=== PATIENT | female | born 1965 | race Caucasian/White ===

== ENCOUNTER 2023-10-06 13:40 | Outpatient (RCR) | payer OTHER, SELFPAY | END 2023-10-06 23:59 | disposition home or self-care (01) | LOC: RST 13:40 | PROVIDERS: ATTENDING PHYSICIAN Internal Medicine Gastroenterology; FAMILY PHYSICIAN Family Medicine | DX: I67.1 Cerebral aneurysm, nonruptured (principal); I69.328 Other speech and language deficits following cerebral infarction; I69.314 Frontal lobe and executive function deficit following cerebral infarction; H53.9 Unspecified visual disturbance | CPT/HCPCS: 92507 ==

== ENCOUNTER 2023-11-03 12:05 | Outpatient (RCR) | payer OTHER, SELFPAY | END 2023-11-03 23:59 | disposition home or self-care (01) | LOC: RST 12:05 | PROVIDERS: ATTENDING PHYSICIAN Family Medicine; FAMILY PHYSICIAN Internal Medicine Gastroenterology | DX: I67.1 Cerebral aneurysm, nonruptured (principal); H53.9 Unspecified visual disturbance; S09.90XD Unspecified injury of head, subsequent encounter; I69.328 Other speech and language deficits following cerebral infarction; I69.314 Frontal lobe and executive function deficit following cerebral infarction | CPT/HCPCS: 92507 ==

== ENCOUNTER 2023-11-16 12:51 | Outpatient (RCR) | payer OTHER, SELFPAY | END 2023-11-16 23:59 | disposition home or self-care (01) | LOC: ROT 12:51 | PROVIDERS: ATTENDING PHYSICIAN Physical Medicine & Rehabilitation; FAMILY PHYSICIAN Family Medicine | DX: I69.354 Hemiplegia and hemiparesis following cerebral infarction affecting left non-dominant side (principal); I69.398 Other sequelae of cerebral infarction; Z73.6 Limitation of activities due to disability; I69.311 Memory deficit following cerebral infarction; I69.319 Unspecified symptoms and signs involving cognitive functions following cerebral infarction; I69.328 Other speech and language deficits following cerebral infarction; I69.314 Frontal lobe and executive function deficit following cerebral infarction; I69.954 Hemiplegia and hemiparesis following unspecified cerebrovascular disease affecting left non-dominant side | CPT/HCPCS: 97014; 97110; 97112; 97116; 97140; 97530 ==

== ENCOUNTER 2023-12-07 12:47 | Outpatient (RCR) | payer OTHER, SELFPAY | END 2023-12-07 23:59 | disposition home or self-care (01) | LOC: ROT 12:47 | PROVIDERS: ATTENDING PHYSICIAN Physical Medicine & Rehabilitation; FAMILY PHYSICIAN Family Medicine | DX: I69.354 Hemiplegia and hemiparesis following cerebral infarction affecting left non-dominant side (principal); Z73.6 Limitation of activities due to disability; I69.311 Memory deficit following cerebral infarction; I69.319 Unspecified symptoms and signs involving cognitive functions following cerebral infarction; I69.328 Other speech and language deficits following cerebral infarction; I69.314 Frontal lobe and executive function deficit following cerebral infarction; I69.954 Hemiplegia and hemiparesis following unspecified cerebrovascular disease affecting left non-dominant side | CPT/HCPCS: 97014; 97110; 97112; 97116; 97140; 97530; 97535 ==

== ENCOUNTER 2023-12-28 13:01 | Outpatient (RCR) | payer OTHER, SELFPAY | END 2023-12-28 23:59 | disposition home or self-care (01) | LOC: RST 13:01 | PROVIDERS: ATTENDING PHYSICIAN Family Medicine; FAMILY PHYSICIAN Family Medicine | DX: I69.328 Other speech and language deficits following cerebral infarction (principal); I69.314 Frontal lobe and executive function deficit following cerebral infarction; I69.954 Hemiplegia and hemiparesis following unspecified cerebrovascular disease affecting left non-dominant side; Z73.6 Limitation of activities due to disability; I69.311 Memory deficit following cerebral infarction | CPT/HCPCS: 92507 ==

== ENCOUNTER 2024-01-04 06:29 | Outpatient (RCR) | payer OTHER, SELFPAY | END 2024-01-04 23:59 | disposition home or self-care (01) | LOC: ROT 06:29 | PROVIDERS: ATTENDING PHYSICIAN Physical Medicine & Rehabilitation; FAMILY PHYSICIAN Family Medicine | DX: I69.354 Hemiplegia and hemiparesis following cerebral infarction affecting left non-dominant side (principal); Z73.6 Limitation of activities due to disability; I69.311 Memory deficit following cerebral infarction; I69.312 Visuospatial deficit and spatial neglect following cerebral infarction; I69.319 Unspecified symptoms and signs involving cognitive functions following cerebral infarction; I69.328 Other speech and language deficits following cerebral infarction; I69.314 Frontal lobe and executive function deficit following cerebral infarction; I69.954 Hemiplegia and hemiparesis following unspecified cerebrovascular disease affecting left non-dominant side | CPT/HCPCS: 97014; 97110; 97112; 97116; 97140; 97530; 97535 ==

== ENCOUNTER 2024-01-18 13:34 | Outpatient (RCR) | payer OTHER, SELFPAY | END 2024-01-18 23:59 | disposition home or self-care (01) | LOC: RST 13:34 | PROVIDERS: ATTENDING PHYSICIAN Family Medicine; FAMILY PHYSICIAN Internal Medicine Gastroenterology | DX: I69.328 Other speech and language deficits following cerebral infarction (principal); I69.314 Frontal lobe and executive function deficit following cerebral infarction; S09.90XD Unspecified injury of head, subsequent encounter; I69.312 Visuospatial deficit and spatial neglect following cerebral infarction; I69.954 Hemiplegia and hemiparesis following unspecified cerebrovascular disease affecting left non-dominant side; Z73.6 Limitation of activities due to disability | CPT/HCPCS: 92507 ==

== ENCOUNTER 2024-02-01 15:14 | Outpatient (RCR) | payer OTHER, SELFPAY | END 2024-02-01 23:59 | disposition home or self-care (01) | LOC: RST 15:14 | PROVIDERS: ATTENDING PHYSICIAN Family Medicine; FAMILY PHYSICIAN Internal Medicine Gastroenterology | DX: I69.328 Other speech and language deficits following cerebral infarction (principal); I69.314 Frontal lobe and executive function deficit following cerebral infarction; S09.90XD Unspecified injury of head, subsequent encounter; H53.9 Unspecified visual disturbance | CPT/HCPCS: 92507 ==

== ENCOUNTER 2024-02-15 13:32 | Outpatient (RCR) | payer OTHER, SELFPAY | END 2024-02-15 23:59 | disposition home or self-care (01) | LOC: ROT 13:32 | PROVIDERS: ATTENDING PHYSICIAN Physical Medicine & Rehabilitation; FAMILY PHYSICIAN Family Medicine | DX: I69.354 Hemiplegia and hemiparesis following cerebral infarction affecting left non-dominant side (principal); Z73.6 Limitation of activities due to disability; I69.311 Memory deficit following cerebral infarction; I69.319 Unspecified symptoms and signs involving cognitive functions following cerebral infarction; I69.328 Other speech and language deficits following cerebral infarction; I69.314 Frontal lobe and executive function deficit following cerebral infarction; I69.954 Hemiplegia and hemiparesis following unspecified cerebrovascular disease affecting left non-dominant side | CPT/HCPCS: 97110; 97112; 97116; 97530 ==

== ENCOUNTER → 2024-02-22 15:57 | Outpatient (REF) | payer OTHER, SELFPAY | LOC: RAD 15:57 | PROVIDERS: ATTENDING PHYSICIAN Neurological Surgery; FAMILY PHYSICIAN Family Medicine | DX: I60.9 Nontraumatic subarachnoid hemorrhage, unspecified (principal) | CPT/HCPCS: 70450 ==

== ENCOUNTER 2024-03-08 13:33 | Outpatient (RCR) | payer OTHER, SELFPAY | END 2024-03-09 07:37 | disposition home or self-care (01) | LOC: ROT 13:33 | PROVIDERS: ATTENDING PHYSICIAN Physical Medicine & Rehabilitation; FAMILY PHYSICIAN Family Medicine | DX: I69.354 Hemiplegia and hemiparesis following cerebral infarction affecting left non-dominant side (principal); Z73.6 Limitation of activities due to disability; I69.311 Memory deficit following cerebral infarction; I69.319 Unspecified symptoms and signs involving cognitive functions following cerebral infarction; I69.328 Other speech and language deficits following cerebral infarction; I69.314 Frontal lobe and executive function deficit following cerebral infarction; I69.954 Hemiplegia and hemiparesis following unspecified cerebrovascular disease affecting left non-dominant side | CPT/HCPCS: 97110; 97112; 97116; 97530; 97535 ==

== ENCOUNTER → 2024-04-19 13:26 | Outpatient (REF) | payer OTHER, SELFPAY | LOC: RAD 13:26 | PROVIDERS: ATTENDING PHYSICIAN Surgery Vascular Surgery; FAMILY PHYSICIAN Family Medicine | DX: I82.409 Acute embolism and thrombosis of unspecified deep veins of unspecified lower extremity (principal) | CPT/HCPCS: 93970; 93978 ==

== ENCOUNTER 2024-05-11 06:08 | Day surgery (SDC) | payer OTHER, SELFPAY ==
[2024-05-11] VITALS (9 sets, daily range): BP systolic 88–106; BP diastolic 53–69; BMI 23.6
[2024-05-11] MEDS: NORMOSOL-R 1000 IV (07:25)
== END 2024-05-11 10:18 | disposition home or self-care (01) ==
LOC: SDS 06:08
PROVIDERS: ATTENDING PHYSICIAN Obstetrics & Gynecology Gynecology
DX: R87.613 High grade squamous intraepithelial lesion on cytologic smear of cervix (HGSIL) (principal)
CPT/HCPCS: 57461; 88305; 88307; 88341; 88342

== ENCOUNTER → 2024-12-15 14:00 | Outpatient (REF) | payer OTHER, SELFPAY | LOC: WDC 14:00 | PROVIDERS: ATTENDING PHYSICIAN Family Medicine | DX: Z12.31 Encounter for screening mammogram for malignant neoplasm of breast (principal) | CPT/HCPCS: 77063; 77067 ==

== ENCOUNTER → 2024-12-20 13:20 | Outpatient (REF) | payer OTHER, SELFPAY | LOC: RAD 13:20 | PROVIDERS: ATTENDING PHYSICIAN Obstetrics & Gynecology Gynecology; FAMILY PHYSICIAN Family Medicine | DX: R10.2 Pelvic and perineal pain (principal) | CPT/HCPCS: 76830; 76856 ==

== ENCOUNTER → 2025-02-14 09:33 | Outpatient (REF) | payer OTHER, SELFPAY ==
[2025-02-14 10:21] LABS: % Basophils 0.5 % (0-2); % Eosinophils 1.2 % (0-6); % Immature Granulocytes 0.2 % (0-0.5); % Neutrophils 56.1 % (42.2-75.2); Absolute Eosinophils 0.1 10^3/uL (0-0.7); Absolute Lymphocytes 1.9 10^3/uL (1.2-3.4); Absolute Monocytes 0.5 10^3/uL (0.1-0.6); Absolute Neutrophils 3.2 10^3/uL (1.4-6.5); Hematocrit 35.7 % (37.0-47.0); Hemoglobin 11.1 g/dL (12.0-16.0); Mean Corp Hgb Conc. 31.1 g/dL (33.0-37.0); Mean Corpuscular Hgb 25.3 pg (27.0-31.0); Mean Corpuscular Volume 81.5 fL (81.0-99.0); Mean Platelet Volume 9.2 fL (7.4-10.4); Nucleated Red Blood Cells % 0 %; Platelet Count 314 10^3/uL (130-400); Red Blood Cell Count 4.38 10^6/uL (4.20-5.40); Red Cell Dist. Width 15.6 % (11.5-14.5); White Blood Cell Count 5.6 10^3/uL (4.8-10.8)
[2025-02-14 10:57] LABS: ALT (SGPT) 24 U/L (0-35); AST (SGOT) 19 U/L (14-36); Albumin 4.2 g/dl (3.5-5.0); Alkaline Phosphatase 138 U/L (38-126); Blood Urea Nitrogen 13 mg/dl (7-17); Carbon Dioxide 29 mmol/L (22-30); Chloride 109 mmol/L (98-107); Glucose 116 mg/dl (70-99); HDL Cholesterol 60 mg/dl; LDL Cholesterol, Calculated 81 mg/dl; Potassium 3.9 mmol/L (3.5-5.1); Sodium 145 mmol/L (135-145); Total Bilirubin 0.4 mg/dl (0.2-1.3); Total Cholesterol 169 mg/dl (50-199); Total Protein 6.5 g/dl (6.3-8.2); Triglyceride 142 mg/dl (10-149); Very Low Density Lipoprotein 28 mg/dl (0-30); eGFR > 60.00
[2025-02-14 11:32] LABS: Glycohemoglobin (HgbA1c) 6.5 % (4.0-5.6)
[2025-02-14 11:45] LABS: Vitamin D, 25-OH*** 27.7 ng/mL (30-80)
[2025-02-14 11:59] LABS: TSH Reflex To Free T4 2.17 uIU/ml (0.47-4.68)
[2025-02-14 12:18] LABS: Vitamin B12 332 pg/ml (239-931)
== END ==
LOC: REG 09:33
PROVIDERS: ATTENDING PHYSICIAN Family Medicine
DX: Z00.00 Encounter for general adult medical examination without abnormal findings (principal); E11.9 Type 2 diabetes mellitus without complications; I10 Essential (primary) hypertension; E53.8 Deficiency of other specified B group vitamins; E55.9 Vitamin D deficiency, unspecified; R73.09 Other abnormal glucose; F41.9 Anxiety disorder, unspecified
CPT/HCPCS: 36415; 80053; 80061; 82306; 82607; 83036; 84443; 85025

== ENCOUNTER 2025-03-08 06:19 | Day surgery (SDC) | payer OTHER, SELFPAY ==
[2025-02-21 14:05] VITALS: BMI 27.6
[2025-03-08] VITALS (14 sets, daily range): BP systolic 91–121; BP diastolic 46–71; BMI 27.6
[2025-03-08] MEDS: TYLENOL 1000 MG PO (09:53)
[2025-03-08] MEDS: NORMOSOL-R/PLASMALYTE-A 1000 IV ×3 (09:54→23:14)
[2025-03-08] MEDS: MORPHINE PCA 30 IV (15:37)
--- NOTE | 2025-03-08 16:57 | PTCARENOTE ---
Pt received from the PACU via bed. Transport was w/o incident. Pt is Drowsy and sleeping, although easily arousable. HRR, lungs are clear and decreased. 3 Lap sites to abd, well approximated w/surgical glue, no drainage noted. Pt's shahnaz pad dry at
this time. VS: 98.4-83-16-98/56. Pulse ox 97% 2lvia nc. Pt instructed on plan of care. Pt verbalized understanding of instructions, Call brewer is within reach.
[2025-03-08] MEDS: HEPARIN 5000 UNITS SC (18:04)
[2025-03-08] MEDS: TORADOL 15 MG IV (20:34)
[2025-03-08 20:39] LABS: Hematocrit 33.8 % (37.0-47.0); Hemoglobin 10.5 g/dL (12.0-16.0)
[2025-03-08] MEDS: ANCEF 10 IV (20:41)
[2025-03-09] MEDS: HEPARIN SC (01:00)
[2025-03-09] MEDS: HEPARIN 5000 UNITS SC ×3 (01:05→15:12)
[2025-03-09] MEDS: TORADOL 15 MG IV (02:25)
[2025-03-09 02:56] VITALS: BP 101/55
[2025-03-09] MEDS: ANCEF 10 IV (04:27)
[2025-03-09 06:17] LABS: % Basophils 0.1 % (0-2); % Immature Granulocytes 0.3 % (0-0.5); % Neutrophils 76.6 % (42.2-75.2); Absolute Lymphocytes 1.4 10^3/uL (1.2-3.4); Absolute Monocytes 0.8 10^3/uL (0.1-0.6); Absolute Neutrophils 7.3 10^3/uL (1.4-6.5); Hematocrit 29.7 % (37.0-47.0); Hemoglobin 9.2 g/dL (12.0-16.0); Mean Corpuscular Hgb 24.5 pg (27.0-31.0); Mean Corpuscular Volume 79.2 fL (81.0-99.0); Mean Platelet Volume 9.4 fL (7.4-10.4); Nucleated Red Blood Cells % 0 %; Platelet Count 268 10^3/uL (130-400); Red Blood Cell Count 3.75 10^6/uL (4.20-5.40); Red Cell Dist. Width 15.8 % (11.5-14.5); White Blood Cell Count 9.5 10^3/uL (4.8-10.8)
[2025-03-09 06:43] LABS: Blood Urea Nitrogen 7 mg/dl (7-17); Carbon Dioxide 29 mmol/L (22-30); Chloride 110 mmol/L (98-107); Estimated Creatinine Clearance 94 ml/min; Sodium 146 mmol/L (135-145)
--- NOTE | 2025-03-09 07:13 | PTCARENOTE ---
pt with small amount of bleeding in shahnaz-pad.
--- NOTE | 2025-03-09 07:29 | W.PN.GYN.DG ---
Today's Communication / Plan
-
Advance diet
Ambulate
Recheck H/H at 2pm
Po pain meds
Stop IVF
Plan d/c this pm
Assessment / Plan
-
Assessment:
POD #1 LAVH - BSO
Plan:
Advance diet
Ambulate
Recheck H/H at 2pm
Po pain meds
Stop IVF
Plan d/c this pm
Subjective / Objective Data
Subjective Data
PT doing well - good pain control - no nausea or vomiting
Objective Data
Vital Signs
Temp Pulse Resp BP Pulse Ox
98.6 F 67 18 101/55 100
03/09/25 02:56 03/09/25 02:56 03/09/25 07:06 03/09/25 02:56 03/09/25 07:06
Intake & Output
03/08/25 03/09/25 03/10/25
06:59 06:59 06:59
Intake Total 2043 / 2043
Output Total 1450 / 1450
Balance 594 / 594
Intake:
Oral fluids 240 / 240
IV fluids (Total) 1800 / 1800
Normosol 300 / 300
IV piggybacks 4 / 4
Output:
Urine, Saenz 1450 / 1450
Physical Exam
-
Cardiac: Regular rate & rhythm
Lungs: Clear: Bilateral
Abdomen: Soft and Nontender
Bowel Sounds: Normal
Extremities: Other (+ comp stockings)
Incision: Clean, Dry, Intact and Other (steri strips and bandaids in place )
Data Reviewed
-
Lab Data
03/09/25 05:30
03/09/25 05:30
--- NOTE | 2025-03-09 07:43 | W.DS.TRANS ---
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
-
Discharge Instructions:
Sleep Apnea Risk Low
Discharge Diagnosis/Procedures s/p LAVH/BSO
Diet No restrictions
Activity No strenuous activity
Additional Activity PElvic rest - nothing in vagina
Driving Restrictions No driving for 2 weeks
Bathing Restrictions OK to Shower
Instructions:
Stand-Alone Forms:
Changes to Home Medications: No
Discharge Medications:
DC Medications w/original date entered in [facility]
aspirin 81 mg tablet,delayed release 81 mg PO DAILY 05/09/24
atorvastatin 20 mg tablet 20 mg PO DAILY 05/09/24
escitalopram oxalate 10 mg tablet (Lexapro) 10 mg PO DAILY 05/09/24
acetaminophen 325 mg tablet (Tylenol) 650 mg PO TID PRN pain 03/04/25
folic acid 1 mg tablet 1 mg PO DAILY 03/04/25
melatonin 5 mg chewable tablet 5 mg PO DAILY 03/04/25
methylphenidate HCl 20 mg tablet 20 mg PO DAILY 03/04/25
multivitamin 1 tab PO DAILY 03/04/25
Home Medication Changes
Pending Results: Yes
Additional Pending Results:
afternoon h/h
[2025-03-09] MEDS: NORMOSOL-R/PLASMALYTE-A IV (07:48)
[2025-03-09] MEDS: MOTRIN 800 MG PO ×2 (08:02→15:02)
[2025-03-09 08:10] VITALS: BP 100/65
--- NOTE | 2025-03-09 09:23 | CM ---
Patient d/c today. Initial assessment completed. Laparoscopic-assisted vaginal hysterectomy with bilateral salpingo-oophorectomy this admission.
Patient resides w/ mother and son in a [facility]- 5 steps to enter. Patient is independent w/ ambulating, no device required. Assisted w/ ADLs at this time. Per patient, she has been working w/ a caregiver for 2 years that assists w/ ADLs, however,
caregiver is retiring at the end of this month. Patient shares she will be able to complete ADLs independently following caregiver's departure. Patient was at [facility] in the past, [facility] in the past, OP therapy in the past.
Address, points of contact and insurance verified
PCP: Levon Das
Pharmacy: [facility]
Patient's mother and son will transport home
Plan: Home, no needs
[2025-03-09 11:39] VITALS: BP 111/58
[2025-03-09 14:34] LABS: Hematocrit 34.3 % (37.0-47.0); Hemoglobin 10.7 g/dL (12.0-16.0)
[2025-03-09 15:50] VITALS: BP 100/60
== END 2025-03-09 16:20 | disposition home or self-care (01) ==
LOC: SDS 06:19
PROVIDERS: ATTENDING PHYSICIAN Obstetrics & Gynecology Gynecology; FAMILY PHYSICIAN Family Medicine
DX: D06.9 Carcinoma in situ of cervix, unspecified (principal); N84.0 Polyp of corpus uteri; N80.03 Adenomyosis of the uterus; N83.8 Other noninflammatory disorders of ovary, fallopian tube and broad ligament; N83.292 Other ovarian cyst, left side; N83.291 Other ovarian cyst, right side
CPT/HCPCS: 58552; 88307; 80051; 82565; 84520; 85014; 85018; 85025; 86850; 86900; 86901; 88341; 88342; 93005; C1776

== ENCOUNTER 2025-05-28 09:40 | Outpatient (RCR) | payer MEDICARE, SELFPAY | END 2025-05-28 23:59 | disposition home or self-care (01) | LOC: ROT 09:40 | PROVIDERS: ATTENDING PHYSICIAN Physical Medicine & Rehabilitation; FAMILY PHYSICIAN Family Medicine | DX: I69.354 Hemiplegia and hemiparesis following cerebral infarction affecting left non-dominant side (principal); I69.311 Memory deficit following cerebral infarction; Z73.6 Limitation of activities due to disability | CPT/HCPCS: 97163; 97167; 97530; 97537 ==

== ENCOUNTER 2025-06-27 13:53 | Outpatient (RCR) | payer MEDICARE, SELFPAY | END 2025-06-27 23:59 | disposition home or self-care (01) | LOC: ROT 13:53 | PROVIDERS: ATTENDING PHYSICIAN Physical Medicine & Rehabilitation; FAMILY PHYSICIAN Family Medicine | DX: I69.354 Hemiplegia and hemiparesis following cerebral infarction affecting left non-dominant side (principal); I69.311 Memory deficit following cerebral infarction; Z73.6 Limitation of activities due to disability; G81.14 Spastic hemiplegia affecting left nondominant side | CPT/HCPCS: 97014; 97110; 97112; 97116; 97140; 97530; 97535 ==

== ENCOUNTER 2025-07-30 12:00 | Outpatient (RCR) | payer MEDICARE, SELFPAY | END 2025-07-30 23:59 | disposition home or self-care (01) | LOC: RST 12:00 | PROVIDERS: ATTENDING PHYSICIAN Physician Assistant Medical; FAMILY PHYSICIAN Family Medicine | DX: I69.354 Hemiplegia and hemiparesis following cerebral infarction affecting left non-dominant side (principal); I69.311 Memory deficit following cerebral infarction; Z73.6 Limitation of activities due to disability; G81.14 Spastic hemiplegia affecting left nondominant side; I69.328 Other speech and language deficits following cerebral infarction; I69.314 Frontal lobe and executive function deficit following cerebral infarction; I67.1 Cerebral aneurysm, nonruptured | CPT/HCPCS: 96125; 97010; 97014; 97110; 97112; 97116; 97129; 97130; 97140; 97530; 97535; 97760 ==

== ENCOUNTER 2025-08-28 13:22 | Outpatient (RCR) | payer MEDICARE, SELFPAY | END 2025-08-28 23:59 | disposition home or self-care (01) | LOC: RST 13:22 | PROVIDERS: ATTENDING PHYSICIAN Physician Assistant Medical; FAMILY PHYSICIAN Family Medicine | DX: I69.354 Hemiplegia and hemiparesis following cerebral infarction affecting left non-dominant side (principal); I69.311 Memory deficit following cerebral infarction; Z73.6 Limitation of activities due to disability; G81.14 Spastic hemiplegia affecting left nondominant side; I69.328 Other speech and language deficits following cerebral infarction; I69.314 Frontal lobe and executive function deficit following cerebral infarction; I67.1 Cerebral aneurysm, nonruptured | CPT/HCPCS: 97110; 97112; 97116; 97129; 97130; 97140; 97530; 97535; 97537 ==

== ENCOUNTER 2025-09-27 07:11 | Outpatient (RCR) | payer MEDICARE, SELFPAY | END 2025-09-27 23:59 | disposition home or self-care (01) | LOC: RST 07:11 | PROVIDERS: ATTENDING PHYSICIAN Physician Assistant Medical; FAMILY PHYSICIAN Family Medicine | DX: I69.354 Hemiplegia and hemiparesis following cerebral infarction affecting left non-dominant side (principal); I69.311 Memory deficit following cerebral infarction; Z73.6 Limitation of activities due to disability; G81.14 Spastic hemiplegia affecting left nondominant side; I69.328 Other speech and language deficits following cerebral infarction; I69.314 Frontal lobe and executive function deficit following cerebral infarction; I67.1 Cerebral aneurysm, nonruptured | CPT/HCPCS: 97010; 97014; 97110; 97112; 97129; 97130; 97140; 97530; 97535 ==

== ENCOUNTER 2025-10-30 12:39 | Outpatient (RCR) | payer MEDICARE, SELFPAY | END 2025-10-30 23:59 | disposition home or self-care (01) | LOC: RST 12:39 | PROVIDERS: ATTENDING PHYSICIAN Physician Assistant Medical; FAMILY PHYSICIAN Family Medicine | DX: I69.354 Hemiplegia and hemiparesis following cerebral infarction affecting left non-dominant side (principal); I69.311 Memory deficit following cerebral infarction; Z73.6 Limitation of activities due to disability; G81.14 Spastic hemiplegia affecting left nondominant side; I69.328 Other speech and language deficits following cerebral infarction; I69.314 Frontal lobe and executive function deficit following cerebral infarction; I67.1 Cerebral aneurysm, nonruptured | CPT/HCPCS: 97112; 97129; 97130; 97140; 97530; 97535 ==